=== PATIENT | male | born 2005 | race Caucasian/White ===

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

== ENCOUNTER 2023-12-05 17:31 | Emergency (ER) | payer OTHER, SELFPAY ==
--- NOTE | ~2023-12-05 | XR_ITS ---
XR foot LT min 3V DATE: 12/05/2023 17:57 INDICATION: Dropped weight on foot one week ago. Pain. TECHNIQUE: 3 views COMPARISON: None FINDINGS: No fracture or dislocation, periosteal reaction or bone destruction. Joint spaces are prese rved. IMPRESSION: Negative Reviewed, dictated and finalized at location A. IMPRESSION: Negative
[2023-12-05 18:00] VITALS: BP 117/72; PULSE 81; RESP 19; TEMP 36.7; O2SAT 100
--- NOTE | 2023-12-05 18:14 | ED.LOWEXIN ---
HPI - Extremity Injury (Lower) General Chief Complaint: Extremity Injury, Lower Stated Complaint: foot injury Time Seen by Provider: 12/05/23 17:54 History of Present Illness HPI Narrative: 18-year-old male presents to the emergency department his family at bedside for pain to his left foot for 5 days. Patient states 5 days ago he dropped a 35 lb weight on the dorsum of his left foot and since then has been having some discomfort. Noticed some swelling earlier that has since resolved. He has been ambulatory without difficulty. No other injuries acquired. Related Data Home Medications Medication Instructions Recorded Confirmed No Home Medications 11/23/20 Allergies Allergy/AdvReac Type Severity Reaction Status Date / Time No Known Allergies Allergy Verified 11/23/20 00:29 Review of Systems Review of Systems: CONSTITUTIONAL: Denies fever, chills, or sweats. EYES: Denies visual changes, redness, or discharge. ENT: Denies rhinorrhea, congestion, sore throat, or otalgia. CARDIOVASCULAR: Denies chest pain, palpitations, or edema. RESPIRATORY: Denies cough or dyspnea. GASTROINTESTINAL: Denies abdominal pain, nausea, vomiting, or diarrhea. GENITOURINARY: Denies dysuria or hematuria. SKIN: Denies rash or itching. MUSCULOSKELETAL: See HPI NEUROLOGIC: Denies headache, numbness, or weakness. PSYCHIATRIC: Denies anxiety or depression. [facility] Social History Social History Smoking status: Never smoker Exam Narrative: GENERAL: Well-appearing, well-nourished, and in no acute distress. HEAD: Normocephalic, atraumatic. NECK: Supple. CHEST: Clear to auscultation. No respiratory distress. HEART: Regular rate and rhythm. No murmur heard. Normal peripheral pulses. EXTREMITIES: LLE: Small area of ecchymosis and tenderness to the dorsum of the left foot overlying the navicular bone. No deformities, step-offs or crepitus. No tenderness to the remainder of metatarsals, toes, ankle or tib-fib. Patient has full range of motion of ankle and toes. DP pulse 2 +. Sensation intact throughout. Cap refill less than 2. SKIN: Warm, dry, no rash. NEURO: No focal deficits. Alert and oriented x3 MDM - Extremity Injury (Lower) MDM Narrative Medical decision making narrative: 18-year-old male presents to emergency department for pain to the dorsum of his left foot after dropping a 35 lb weight on it 5 days ago. See HPI for further history. Triage vitals stable. X-ray of the foot is unremarkable. Exam is significant for the above. Advised Tylenol ibuprofen for pain, rice and follow-up with PCP. ED return precautions provided. He is agreeable to plan verbalized understanding. Discharged in stable condition. Discharge Plan Discharge Clinical Impression: Contusion of foot, left Qualifiers: Encounter type: initial encounter Qualified Code(s): S90.32XA - Contusion of left foot, initial encounter Patient Disposition: Home, Self-Care Condition: Stable Instructions: Antibiotic Form, Contusion in Adults (ED) Additional Instructions: You were evaluated in the emergency department for left foot pain. Her x-rays do not show any broken bones. Please take Tylenol and ibuprofen as needed for pain, rest, ice, elevate and keep it compressed. Please follow-up closely with her primary care provider. Return to the emergency department if he develops significant worsening pain or other concerning symptoms. Prescriptions: No Action No Home Medications Follow-up/Referrals: ROOM PHYSICIAN,EMERGENCY [Primary Care Provider] - Brandon Christie MD [Physician] - 1 Week
== END 2023-12-05 18:57 | disposition home or self-care (01) ==
LOC: ANHED 18:42
PROVIDERS: Emergency Provider Physician Assistant
DX: S90.32XA Contusion of left foot, initial encounter (principal); W20.8XXA Other cause of strike by thrown, projected or falling object, initial encounter
CPT/HCPCS: 73630; 99283